=== PATIENT | male | born 1990 | race Caucasian/White ===

== ENCOUNTER → 2016-05-17 | Outpatient (CLI) | payer SELFPAY ==
[2016-05-17 13:58] LABS: CREATININE RESULT 0.88 mg/dL (0.52-1.25)
== END ==
LOC: OD 12:18
PROVIDERS: ATTEND Internal Medicine Gastroenterology
DX: D12.6 Benign neoplasm of colon, unspecified (principal)
CPT/HCPCS: 36415; 82565